=== PATIENT | male | born 1950 | race Caucasian/White ===

== ENCOUNTER 2021-02-07 05:40 | Outpatient (CLI) | payer MEDICARE, OTHER ==
[~2021-02-07] VITALS: Ht 172.7 cm; Wt 81.8 kg
[~2021-02-07 05:40] MED LIST: DIPH25TA82 PO; MNTL10T PO
[2021-02-07] MEDS ORDERED: PRED10TA22 PO (14:29)
== END 2021-02-07 15:15 ==
LOC: PREOP 05:40
PROVIDERS: ATTEND Otolaryngology Otolaryngology/Facial Plastic Surgery
DX: Z01.818 Encounter for other preprocedural examination (principal)

== ENCOUNTER 2021-02-16 06:31 | Day surgery (SDC) | payer MEDICARE, OTHER ==
[~2021-02-16] VITALS: Ht 172.7 cm; Wt 81.8 kg
[2021-02-16] VITALS (10 sets, daily range): BP systolic 101–154; BP diastolic 62–83
[~2021-02-16 06:31] MED LIST changes: +PRED10TA22 PO
[2021-02-16] MEDS ORDERED: LACTATED RINGERS 1,000 ML IV PRN (06:45)
[2021-02-16] MEDS ORDERED: HYDROCORTISONE 100 MG/2 ML (Solu-CORTEF) VIAL IV ONE (06:45)
[2021-02-16 07:20] LABS: BASOPHILS % (AUTO) 0 % (0-10); EOSINOPHILS % (AUTO) 0 % (0-10); HEMATOCRIT 44 % (40-54); HEMOGLOBIN 14.6 g/dL (13.3-17.7); MEAN CORPUSCULAR HGB CONC 33 g/dL (32-36)
[2021-02-16] MEDS ORDERED: MUPIROCIN 2% OINT 22 GM (BACTROBAN) TUBE ONE (07:21)
[2021-02-16] MEDS ORDERED: LIDOCAINE/EPI 1%-1:100,000 (XYLOCAINE) 20ML ONE (07:21)
[2021-02-16 07:22] LABS: LYMPHOCYTES % (AUTO) 44 % (12-44); MEAN CORPUSCULAR HEMOGLOBIN 33 pg (25-34); MEAN CORPUSCULAR VOLUME 99 fL (80-99); MEAN PLATELET VOLUME 11.7 fL (9.0-12.2); MONOCYTES % (AUTO) 22 % (0-12); NEUTROPHILS # (AUTO) 1.5 10^3/uL (1.8-7.8); NEUTROPHILS % (AUTO) 33 % (42-75); PLATELET COUNT 97 10^3/uL (130-400); WHITE BLOOD COUNT 4.6 10^3/uL (4.3-11.0)
[2021-02-16] MEDS ORDERED: proPOfol 200 MG/20 ML (DIPRIVAN) VIAL IV ONE (07:22)
[2021-02-16] MEDS ORDERED: fentaNYL INJ 100 MCG/2 ML AMP ONE (07:22)
[2021-02-16] MEDS ORDERED: ONDANSETRON 4 MG/2 ML (SDV) Z0FRAN ONE (07:22)
[2021-02-16] MEDS ORDERED: LIDOCAINE PF 2% 5 ML (XYLOCAINE) VIAL ONE (07:22)
[2021-02-16] MEDS ORDERED: SEVOFLURANE (ULTANE) 15 ML INHAL SOLN ONE ×2 (07:22→08:04)
[2021-02-16] MEDS ORDERED: MIDAZOLAM 2 MG/2 ML (VERSED) VIAL ONE (07:22)
[2021-02-16 07:36] LABS: POTASSIUM 3.7 MMOL/L (3.6-5.0)
[2021-02-16 07:37] LABS: CALCIUM 9.5 MG/DL (8.5-10.1)
[2021-02-16 07:41] LABS: CREATININE SERUM 0.97 MG/DL (0.60-1.30)
[2021-02-16] MEDS ORDERED: SUCCINYLCHOLINE INJ 100 MG/5 ML SYR/VIAL ONE (08:04)
[2021-02-16 08:19] LABS: BAND NEUTROPHILS 1 %; BASOPHILS % (MANUAL) 0 %; EOSINOPHILS % (MANUAL) 0 %; LYMPHOCYTES % (MANUAL) 43 %; MONOCYTES % (MANUAL) 20 %; NEUTROPHILS % (MANUAL) 36 %; RBC MORPH NORMAL
--- NOTE | 2021-02-16 08:35 | Progress Note-Pre Operative ---
Pre-Operative Progress Note H&P Reviewed The H&P was reviewed, patient examined and no changes noted. Date Seen by Provider: Feb 16, 2021 Time Seen by Provider: 07:30 Date H&P Reviewed: Feb 16, 2021 Time H&P Reviewed: 07:30 Pre-Operative Diagnosis: Right Ear Lesions BRAULIO MASON MD Feb 16, 2021 08:35
--- NOTE | 2021-02-16 08:36 | Progress Note-Post Operative ---
Post-Operative Progess Note Surgeon (s)/Pre Fabricator (s) Surgeon BRAULIO MASON MD Pre Fabricator n/a Pre-Operative Diagnosis Right Ear Lesions Post-Operative Diagnosis same Post-Op Procedure Note Date of Procedure: Feb 16, 2021 Name of Procedure Performed: Wedge REsection of Right EAr, Reconstruction with Advancement Flap Description & Findings Description and Findings: n/a Anesthesia Type gen lma Estimated Blood Loss minimal Packing none. Specimen(s) collected/removed right ear lesion for frozen BRAULIO MASON MD Feb 16, 2021 08:36
[2021-02-16] MEDS ORDERED: KETOROLAC 30 MG/ML VIAL ONE (08:42)
[2021-02-16] MEDS ORDERED: HYDROcodone/APAP 5 MG/325 MG (LORTAB) TAB PO PRN (08:45)
[2021-02-16] MEDS ORDERED: ACETAMINOPHEN 325 MG TABLET PO PRN (08:45)
[2021-02-16] MEDS ORDERED: CEPH500T PO (08:55)
[2021-02-16] MEDS ORDERED: ACHD5005 PO (08:55)
[2021-02-16] MEDS ORDERED: HYDROmorphone 2 MG/ML VIAL (DILAUDID) IV ONE (09:00)
[2021-02-16] MEDS ORDERED: ONDANSETRON 4 MG/2 ML (SDV) Z0FRAN IVP PRN (09:00)
--- NOTE | 2021-02-16 12:57 | Anesthesia-General Post-Op ---
General Patient Condition Mental Status/LOC: Same as Preop Cardiovascular: Satisfactory Nausea/Vomiting: Absent Respiratory: Satisfactory Pain: Controlled Complications: Absent Post Op Complications Complications None Follow Up Care/Instructions Patient Instructions None needed. Anesthesia/Patient Condition Patient Condition Patient is doing well, no complaints, stable vital signs, no apparent adverse anesthesia problems. No complications reported per nursing. D/C home per [facility] Criteria: Yes PAKO QUISPE CRNA Feb 16, 2021 12:57
== END 2021-02-16 10:30 | disposition home or self-care (01) ==
LOC: SDC 06:31
PROVIDERS: ATTEND Otolaryngology Otolaryngology/Facial Plastic Surgery
DX: C44.222 Squamous cell carcinoma of skin of right ear and external auricular canal (principal); J30.9 Allergic rhinitis, unspecified; M19.90 Unspecified osteoarthritis, unspecified site; M35.3 Polymyalgia rheumatica; Z85.828 Personal history of other malignant neoplasm of skin; Z79.899 Other long term (current) drug therapy
CPT/HCPCS: 36415; 80048; 85007; 85027; 87081; 88305; 88331; 88332; 93005

== ENCOUNTER 2023-01-28 11:02 | Emergency (ER) | payer MEDICARE, OTHER ==
[~2023-01-28] VITALS: Ht 172 cm; Wt 83.0 kg
[~2023-01-28 11:02] MED LIST changes: +ACHD5005 PO; +CEPH500T PO
[2023-01-28] MEDS ORDERED: NS IV 1000 ML 1,000 ML IV STA (11:55)
--- NOTE | 2023-01-28 12:03 | ED Integumentary General ---
"General Chief Complaint: Skin/Wound Problems Stated Complaint: RASH ON CHEST/LEGS/BACK | Nursing Triage Note: PT AMBULATORY TO ER, C/O GENERALIZED RASH ONSET 3 DAYS AGO. REPORTS HAS TAKEN BENADRYL WITH NO RELIEF. PT WAS DX WITH A TOENAIL FUNGUS RECENTLY, STARTED ON FLUCONAZOLE, KETOCONAZOLE CREAM, AND BACTRIM. PT REPORTS STOPPED THOSE MEDS WHEN THE RASH STARTED. Source: patient Exam Limitations: no limitations (CHASTITY TIERNEY) History of Present Illness Date Seen by Provider: Jan 28, 2023 Time Seen by Provider: 11:57 Initial Comments Patient is a 72-year-old male who presents to the ED for diffuse rash. Rash started around his torso and has spread throughout over the past three days. The rash is described as red and tingly. Denies of any itching. Denies any pain with the rash. Patient states he does feel slightly weak and dry. Denies of any nausea, vomiting, cough, diarrhea or flu like symptoms. On January 17 he started on fluconazole 150 mg daily, Bactrim and ketoconazole topical cream for a fungal infection of his left foot. Patient states he has been urinating without any difficulties. Denies chest pain cough, shortness of breath or fever. Denies of any sloughing of the skin. Denies sore throat (CHASTITY TIERNEY) Allergies and Home Medications Allergies Coded Allergies: banana (Verified Allergy, Unknown, 02/07/21) THROAT ITCHING Patient Home Medication List Home Medication List Reviewed: Yes (CHASTITY TIERNEY) Cephalexin (Cephalexin) 500 Mg Tablet, 500 MG PO TID Prescribed by: KENYATTA REYNAGA on 02/16/21 0855 Diphenhydramine Hcl (Diphenhydramine 25 Mg) 25 Mg Tablet, 1 EACH PO HS, (Re ported) Entered as Reported by: CASSIA TRENT on 02/17/13 0924 Hydrocodone/Acetaminophen (Hydrocodone-Acetamin 5-325 mg) 1 Each Tablet, 1-2 TAB PO Q4H PRN for PAIN-MODERATE (5-7) Prescribed by: KENYATTA REYNAGA on 02/16/21 0855 Montelukast Sodium (Singulair 10 Mg) 10 Mg Tablet, 1 TAB PO DAILY, (Reported) Entered as Reported by: CASSIA TRENT on 02/17/13 0923 Prednisone (Prednisone) 10 Mg Tab.ds.pk, 10 MG PO DAILY, (Reported) Entered as Reported by: RAMON CEJA on 02/07/21 1429 Review of Systems Review of Systems Constitutional: No chills, No diaphoresis EENTM: No hearing loss, No ear pain, No blurred vision, No double vision Respiratory: No cough, No short of breath Cardiovascular: No chest pain Gastrointestinal: No abdominal pain, No diarrhea, No nausea, No vomiting Genitourinary: No decreased output, No discharge Musculoskeletal: No back pain, No joint pain Skin: change in color Psychiatric/Neurological: Denies Anxiety (CHASTITY TIERNEY) All Other Systems Reviewed Negative Unless Noted: Yes (CHASTITY TIERNEY) Past Civxifg-Jdrhlk-Yvvjvr Hx Patient Social History Tobacco Use?: No Substance use?: No Alcohol Use?: Yes Pt feels they are or have been: No (CHASTITY TIERNEY) Immunizations Up To Date First/Initial COVID19 Vaccinat: DENIES (CHASTITY TIERNEY) Seasonal Allergies Seasonal Allergies: Yes (CHASTITY TIERNEY) Past Medical History Surgeries: Yes (HEMORRHOID, LASIK, HERNIA, CTR; RUPUTRED DISC) Abdominal Respiratory: No Cardiac: No Neurological: No Genitourinary: No Gastrointestinal: Yes Hemorrhoids Musculoskeletal: Yes (PMR) Arthritis Endocrine: No HEENT: No Cancer: No Psychosocial: No Integumentary: No Blood Disorders: No (CHASTITY TIERNEY) Physical Exam Vital Signs Vital Signs - First Documented 01/28/23 11:15 Temp 37.7 Pulse 86 Resp 16 B/P (MAP) 145/76 (99) Pulse Ox 99 O2 Delivery Room Air (GENA STALLWORTH MD) Vital Signs Capillary Refill : (CHASTITY TIERNEY) General Appearance: WD/WN, no apparent distress HEENT: PERRL/EOMI, TMs normal, pharynx normal, other (Oral petechiae. 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 No vascular's or pustules. Beefy red) Skin Problem Location: generalized, face (CHASTITY TIERNEY) Progress/Results/Core Measures Results/Orders Lab Results Laboratory Tests Test 01/28/23 12:10 Range/Units White Blood Count 3.8 L 4.3-11.0 10^3/uL Red Blood Count 4.09 L 4.30-5.52 10^6/uL Hemoglobin 13.1 L 13.3-17.7 g/dL Hematocrit 39 L 40-54 % Mean Corpuscular Volume 95 80-99 fL Mean Corpuscular Hemoglobin 32 25-34 pg Mean Corpuscular Hemoglobin Concent 34 32-36 g/dL Red Cell Distribution Width 13.5 10.0-14.5 % Platelet Count 39 *L 130-400 10^3/uL Mean Platelet Volume 13.5 H 9.0-12.2 fL Immature Granulocyte % (Auto) 0 % Neutrophils (%) (Auto) 34 L 42-75 % Lymphocytes (%) (Auto) 14 12-44 % Monocytes (%) (Auto) 51 H 0-12 % Eosinophils (%) (Auto) 1 0-10 % Basophils (%) (Auto) 1 0-10 % Neutrophils # (Auto) 1.3 L 1.8-7.8 10^3/uL Lymphocytes # (Auto) 0.5 L 1.0-4.0 10^3/uL Monocytes # (Auto) 1.9 H 0.0-1.0 10^3/uL Eosinophils # (Auto) 0.0 0.0-0.3 10^3/uL Basophils # (Auto) 0.0 0.0-0.1 10^3/uL Immature Granulocyte # (Auto) 0.0 0.0-0.1 10^3/uL Neutrophils % (Manual) 30 % Lymphocytes % (Manual) 16 % Monocytes % (Manual) 53 % Eosinophils % (Manual) 0 % Basophils % (Manual) 0 % Band Neutrophils 1 % Percent Immature Platelet Fraction 19.7 H 0.0-7.6 % Blood Morphology Comment NORMAL Erythrocyte Sedimentation Rate 32 H 0-30 MM/HR Absolute Reticulocyte Count 101 H 24-90 10e9/uL Percent Reticulocyte Count 2.44 H 0.50-2.40 % Prothrombin Time 14.6 12.2-14.7 SEC INR Comment 1.1 0.8-1.4 Activated Partial Thromboplast Time 36 H 24-35 SEC Fibrinogen 463 221-496 MG/DL D-Dimer 1.61 H 0.00-0.49 UG/ML Sodium Level 129 L 135-145 MMOL/L Potassium Level 3.8 3.6-5.0 MMOL/L Chloride Level 99 98-107 MMOL/L Carbon Dioxide Level 19 L 21-32 MMOL/L Anion Gap 11 5-14 MMOL/L Blood Urea Nitrogen 13 7-18 MG/DL Creatinine 1.20 0.60-1.30 MG/DL Estimat Glomerular Filtration Rate 65 BUN/Creatinine Ratio 11 Glucose Level 108 H 70-105 MG/DL Calcium Level 8.8 8.5-10.1 MG/DL Corrected Calcium 8.6 8.5-10.1 MG/DL Total Bilirubin 0.9 0.1-1.0 MG/DL Aspartate Amino Transf (AST/SGOT) 57 H 5-34 U/L Alanine Aminotransferase (ALT/SGPT) 54 0-55 U/L Alkaline Phosphatase 113 40-136 U/L Lactate Dehydrogenase 368 H 125-220 U/L C-Reactive Protein High Sensitivity 5.81 H 0.00-0.50 MG/DL Total Protein 7.3 6.4-8.2 GM/DL Albumin 4.2 3.2-4.5 GM/DL (GENA STALLWORTH MD) Vital Signs/I&O 01/28/23 01/28/23 01/28/23 01/28/23 11:15 13:33 14:51 15:12 Temp 37.7 Pulse 86 77 81 85 Resp 16 16 16 B/P (MAP) 145/76 (99) 126/59 (81) 137/64 (88) 125/55 Pulse Ox 99 97 95 O2 Delivery Room Air Room Air Room Air (GENA STALLWORTH MD) Blood Pressure Mean: 99 Departure Communication (PCP) Patient is a 72-year-old male fairly healthy who to presents the ED with a rash for the past 3 days. Rash started on his chest and has spread throughout. States he has some mild weakness but denies of any sore throat, fever, vomiting, diarrhea or current pain. Patient recently started taking Bactrim, fluconazole and topical ketoconazole for a left foot fungal infection on 17 January. Developed a rash 3 days ago stopped the medication. No known history of blood disorders. Differential diagnosis, drug induced rash, dress syndrome, Che-Tobin syndrome, ITP, TTP. Rash in his upper extremity looks to be more macular papular edematous. Lower extremity looks to be more petechiae. Does have some petechiae to the oral pharynx. Patient with a low-grade temp 99.7. There is no evidence of sloughing of the skin or of any type of blisters. Only oral lesions are petechiae to the roof of the mouth. No cracking of the lips. No obvious oral involvement, eye or genital involvement. There is no evidence of pustules. Generalized lab work CBC, CMP, coags was initiated. CBC showed a white blood count 3.8, hemoglobin 13.1 and platelet 39. Neutrophil percent 34, monocytes 51. Patient appears to have pancytopenia. Did have a platelet count in 2020 that was 97 and neutrophil percent of 33. This appears to be a gradual decline versus something acute. Concern for ITP versus TTP. Patient had reassuring coags. Patient did not receive any medication here besides a liter of fluid. Patient with normal eosinophils and without elevated neutrophils suggesting dress syndrome. Does not appear to be Che-Tobin syndrome. Discussed patient with Dr. Carcamo hospitalist. Due to abnormal lab work and unknown rash discussed admission. At this time she recommended me to contact Dr. Daugherty oncology. Reviewed case with Dr. Daugherty. Recommend adding DIC panel and smear. If positive for schistocytes recommended transfer for plasma exchange. If negative felt comfortable for patient to be discharged. Negative for schistocytes. he was not concerned for Che-Tobin's or dress syndrome. Patient no known history of blood disorder. At this time Dr. Daugherty recommended no steroids. Suggest rechecking a CBC on Friday and next week. If continued changes recommend to follow-up with him in the office for further evaluation. Recommend stopping the antifungal and antibiotic. If any sloughing of the skin, severe pain or developing oral lesions patient needs return back to ED. Patient will follow up with Dr. Guajardo this Friday for recheck of lab work. Vital signs remained stable. (CHASTITY TIERNEY) Impression Primary Impression: Thrombocytopathia Additional Impression: Drug-induced skin rash Disposition: HOME, SELF-CARE Condition: Stable Departure-Patient Inst. Decision time for Depature: 15:09 (CHASTITY TIERNEY) Referrals: MICHELLE GUAJARDO DO (PCP/Family) Primary Care Physician Patient Instructions: Skin Rash Add. Discharge Instructions: Do not take fluconazole or Bactrim. Recommend rechecking a CBC this Friday as well as next week. If continue changes in your lab work especially your platelets need to contact Dr. Daugherty sales and service representative oncologist who is aware of the case. If any worsening rash such as sloughing of the skin, cracking of the lips, severe pain to return back to ED All discharge instructions reviewed with patient and/or family. Voiced understanding. ATTENDING PHYSICIAN NOTE: I was physically present as attending physician in the emergency department during the care of this patient, but I was not directly involved in the decision making or delivery of care for this patient. (GENA STALLWORTH MD) CHASTITY TIERNEY Jan 28, 2023 12:03 GENA STALLWORTH MD Jan 28, 2023 23:13"
[2023-01-28 12:17] LABS: BASOPHILS % (AUTO) 1 % (0-10); HEMOGLOBIN 13.1 g/dL (13.3-17.7); MEAN CORPUSCULAR HEMOGLOBIN 32 pg (25-34); NEUTROPHILS # (AUTO) 1.3 10^3/uL (1.8-7.8)
[2023-01-28 12:19] LABS: EOSINOPHILS % (AUTO) 1 % (0-10); HEMATOCRIT 39 % (40-54); LYMPHOCYTES # (AUTO) 0.5 10^3/uL (1.0-4.0); LYMPHOCYTES % (AUTO) 14 % (12-44); MEAN CORPUSCULAR HGB CONC 34 g/dL (32-36); MEAN CORPUSCULAR VOLUME 95 fL (80-99); MEAN PLATELET VOLUME 13.5 fL (9.0-12.2); MONOCYTES # (AUTO) 1.9 10^3/uL (0.0-1.0); MONOCYTES % (AUTO) 51 % (0-12); NEUTROPHILS % (AUTO) 34 % (42-75); WHITE BLOOD COUNT 3.8 10^3/uL (4.3-11.0)
[2023-01-28 12:26] LABS: ALBUMIN 4.2 GM/DL (3.2-4.5); POTASSIUM 3.8 MMOL/L (3.6-5.0)
[2023-01-28 12:27] LABS: CALCIUM 8.8 MG/DL (8.5-10.1)
[2023-01-28 12:28] LABS: TOTAL PROTEIN 7.3 GM/DL (6.4-8.2)
[2023-01-28 12:30] LABS: BILIRUBIN,TOTAL 0.9 MG/DL (0.1-1.0)
[2023-01-28 12:32] LABS: CREATININE SERUM 1.2 MG/DL (0.60-1.30)
[2023-01-28 12:34] LABS: INR 1.1 (0.8-1.4); PROTHROMBIN TIME PATIENT 14.6 SEC (12.2-14.7)
[2023-01-28 12:36] LABS: PLATELET COUNT 39 10^3/uL (130-400)
[2023-01-28 12:59] LABS: ERYTHROCYTE SEDIMENTATION RATE 32 MM/HR (0-30)
[2023-01-28 13:06] LABS: BAND NEUTROPHILS 1 %; BASOPHILS % (MANUAL) 0 %; EOSINOPHILS % (MANUAL) 0 %; LYMPHOCYTES % (MANUAL) 16 %; MONOCYTES % (MANUAL) 53 %; NEUTROPHILS % (MANUAL) 30 %; RBC MORPH NORMAL
[2023-01-28 14:54] LABS: FIBRIN DEGRADATION PRODUCTS 1.61 UG/ML (0.00-0.49)
[2023-01-28 14:55] LABS: ABSOLUTE RETIC # 101 10e9/uL (24-90); RETICULOCYTE % 2.44 % (0.50-2.40)
[2023-01-28 15:12] VITALS: BP 125/55
== END 2023-01-28 15:12 | disposition home or self-care (01) ==
LOC: EDUNIT# 11:02 → ER 11:05
DX: L27.0 Generalized skin eruption due to drugs and medicaments taken internally (principal); T37.8X5A Adverse effect of other specified systemic anti-infectives and antiparasitics, initial encounter; D69.1 Qualitative platelet defects; Z28.310 Unvaccinated for COVID-19
CPT/HCPCS: 36415; 80053; 83615; 85027; 85045; 85055; 85379; 85384; 85610; 85652; 85730; 86141